=== PATIENT | male | born 1940 | race Caucasian/White ===

== ENCOUNTER 2020-05-13 10:20 | Outpatient (CLI) | payer MEDICARE, BC ==
[2020-05-13 11:00] LABS: Hemoglobin 14.8 g/dL (13.5-17.5); Mean Corpuscular HGB CONC 32.7 g/dL (32.0-36.0); Mean Corpuscular Hemoglobin 31.9 pg (27.0-33.0); Mean Corpuscular Volume 97.6 fl (81.2-95.1); Mean Platelet Volume 9.7 fl (7.4-10.4); Platelet Count 222 10x3/uL (150-450); RBC Distribution Width 12.7 % (11.5-14.5); Red Blood Cell (RBC) Count 4.64 10x6/uL (4.32-5.72); White Blood Cell (WBC) Count 6.4 10x3/uL (3.5-10.5)
[2020-05-13 11:24] LABS: Anion Gap 13 mmol/L (10-20); BUN (Urea Nitrogen) 12 mg/dL (8.4-25.7); Calc. Creatinine Clearance 0 mL/min (70-130); Calcium 9.5 mg/dL (7.8-10.44); Carbon Dioxide 27 mmol/L (23-31); Chloride 107 mmol/L (98-107); Glucose 87 mg/dL (83-110); Potassium 4.6 mmol/L (3.5-5.1); Sodium 142 mmol/L (136-145)
[2020-05-13 22:42] LABS: SARS-CoV-2 PCR by NAA Not Detected (NotDetected)
== END 2020-05-13 10:21 | disposition home or self-care (01) ==
LOC: CSHLAB 10:20
PROVIDERS: ATTEND Surgery
DX: Z01.812 Encounter for preprocedural laboratory examination (principal); Z20.822 Contact with and (suspected) exposure to COVID-19; K40.91 Unilateral inguinal hernia, without obstruction or gangrene, recurrent; K40.90 Unilateral inguinal hernia, without obstruction or gangrene, not specified as recurrent
CPT/HCPCS: 80048; 85027; 87635; U0003; U0005

== ENCOUNTER 2020-05-13 10:30 | Inpatient (IN) | payer MEDICARE, BC ==
[2020-05-14 14:49] VITALS: BMI 23.5
[2020-05-16] MEDS ORDERED: Lidocaine 1% MPF 2 ML VIAL ONE (07:37)
[2020-05-16] MEDS ORDERED: EPINEPHrine 1 MG/ML AMP ONE (08:50)
[2020-05-16] MEDS ORDERED: Bupivacaine PF 0.5% 30 ML VIAL ONE (08:50)
[2020-05-16] MEDS ORDERED: Fentanyl 100 MCG/2 ML VIAL ONE (09:05)
[2020-05-16] MEDS ORDERED: Lidocaine 1% PF 5 ML VIAL ONE (09:05)
[2020-05-16] MEDS ORDERED: Midazolam HCl 2 mg/2 ml Vial ONE (09:05)
[2020-05-16] MEDS ORDERED: Rocuronium Bromide 10 MG/ML (10ML VIAL) ONE (09:05)
[2020-05-16] MEDS ORDERED: PROPOFOL 20 ML ONE (09:05)
[2020-05-16] MEDS ORDERED: Ondansetron PF 4 MG/2 ML Vial ONE (09:05)
[2020-05-16] MEDS ORDERED: Dexamethasone 4 mg/ml Vial ONE (09:05)
[2020-05-16] MEDS ORDERED: Glycopyrrolate 0.2 MG/ML 5 ML SYRINGE ONE (09:05)
[2020-05-16] MEDS ORDERED: HYDROcodone/Acetaminophen 5/325 mg Tablet PO PRN (10:32)
[2020-05-16] MEDS ORDERED: HYDROcodone/Acetaminophen 5/325 mg Tablet ONE (11:23)
== END 2020-05-16 12:00 | disposition home or self-care (01) | DRG 352 ==
LOC: CSHTELE 05-16 07:28 → EDSTATUS 05-16 10:30
PROVIDERS: ADMIT Surgery; ATTEND Surgery
PROC: 0YUA4JZ Supplement Bilateral Inguinal Region with Synthetic Substitute, Percutaneous Endoscopic Approach (ICD-10-PCS; principal; 2020-05-16)
PROC: 8E0W4CZ Robotic Assisted Procedure of Trunk Region, Percutaneous Endoscopic Approach (ICD-10-PCS; 2020-05-16)
DX: K40.21 Bilateral inguinal hernia, without obstruction or gangrene, recurrent (principal); K41.20 Bilateral femoral hernia, without obstruction or gangrene, not specified as recurrent; I10 Essential (primary) hypertension; E78.5 Hyperlipidemia, unspecified; I34.0 Nonrheumatic mitral (valve) insufficiency; Z79.899 Other long term (current) drug therapy; D51.1 Vitamin B12 deficiency anemia due to selective vitamin B12 malabsorption with proteinuria
CPT/HCPCS: 80048; 85027; 87635; J0171; J0690; J1100; J2250; J2405; J2704; J3010; S0020; U0003; U0005

== ENCOUNTER 2020-06-11 09:33 | Outpatient (CLI) | payer MEDICARE, BC | END 2020-06-11 09:34 | disposition home or self-care (01) | LOC: CSHULT 09:33 | PROVIDERS: ATTEND Internal Medicine | DX: I34.0 Nonrheumatic mitral (valve) insufficiency (principal); I51.7 Cardiomegaly; I35.1 Nonrheumatic aortic (valve) insufficiency | CPT/HCPCS: 93306 ==

== ENCOUNTER 2020-11-07 07:32 | Outpatient (CLI) | payer MEDICARE, BC | END 2020-11-07 07:33 | disposition home or self-care (01) | LOC: CSHULT 07:32 | PROVIDERS: ATTEND Internal Medicine | DX: I10 Essential (primary) hypertension (principal); N28.1 Cyst of kidney, acquired | CPT/HCPCS: 93975 ==

== ENCOUNTER 2021-04-26 17:24 | Emergency (ER) | payer MEDICARE, BC ==
[2021-04-26] MEDS ORDERED: Boostrix 0.5 ML (Tdap) VIAL ONE (18:10)
== END 2021-04-26 18:49 | disposition home or self-care (01) ==
LOC: CSHERS 17:24
DX: S61.011A Laceration without foreign body of right thumb without damage to nail, initial encounter (principal); S61.210A Laceration without foreign body of right index finger without damage to nail, initial encounter; Z23 Encounter for immunization; W27.0XXA Contact with workbench tool, initial encounter
CPT/HCPCS: 12001; 90471; 90715

== ENCOUNTER 2024-12-21 08:20 | Outpatient (CLI) | payer MEDICARE, BC | END 2024-12-21 08:21 | disposition home or self-care (01) | LOC: CSHCT 08:20 | PROVIDERS: ATTEND Internal Medicine Hematology & Oncology | DX: C43.39 Malignant melanoma of other parts of face (principal); R91.8 Other nonspecific abnormal finding of lung field; R93.0 Abnormal findings on diagnostic imaging of skull and head, not elsewhere classified | CPT/HCPCS: 70470; 70491; 71260 ==